=== PATIENT | male | born 1995 | race Caucasian/White ===

== ENCOUNTER 2022-07-29 18:42 | Inpatient (IN) | payer SELFPAY ==
[~2022-07-29 18:42] MED LIST: Iopamidol-370 76% 500 ML 1 ML ONE
[2022-07-29] MEDS ORDERED: Propofol 1,000 MG/100 ML VIAL IV ONE (18:49)
[2022-07-29] MEDS ORDERED: Fentanyl 100 MCG/2 ML VIAL ONE (18:49)
[2022-07-29 19:05] LABS: #Basophils 0.1 thou/uL (0.0-0.2); #Eosinphils 0.1 thou/uL (0.0-0.7); #Lymphocytes 3.4 thou/uL (1.20-3.40); #Monocytes 0.5 thou/uL (0.11-0.59); #Neutrophils 4.7 thou/uL (1.40-6.50); %Basophils 1.2 % (0.0-1.0); %Eosinophils 1.4 % (0.0-10.0); %Lymphocytes 38.3 % (21.0-51.0); %Monocytes 6.1 % (0.0-10.0); Hemoglobin 15.1 g/dL (14.0-18.0); Mean Corpuscular HGB CONC 33.5 g/dL (32.0-36.0); Mean Corpuscular Hemoglobin 29.7 pg (27.0-31.0); Mean Corpuscular Volume 88.7 fL (78.0-98.0); Mean Platelet Volume 7.1 fL (7.4-10.4); Platelet Count 258 thou/uL (130-400); RBC Distribution Width 11.5 % (11.5-14.5); Red Blood Cell (RBC) Count 5.07 mill/uL (4.70-6.10); White Blood Cell (WBC) Count 8.8 thou/uL (4.8-10.8)
[2022-07-29 19:23] LABS: Amphetamine Detected (NotDetected); Barbiturates Screen Not Detected (NotDetected); Benzodiazepine Screen Not Detected (NotDetected); Cocaine Metabolite Screen Not Detected (NotDetected); Methadone Not Detected (NotDetected); Methamphetamine Detected (NotDetected); Opiate Screen Not Detected (NotDetected); Oxycodone Screen Not Detected (NotDetected); Phencyclidine (PCP) Not Detected (NotDetected); THC/Cannabinoid Screen Detected (NotDetected); Tricyclic Screen Not Detected (NotDetected)
[2022-07-29 19:28] LABS: ALT (SGPT) 56 U/L (8-55); AST (SGOT) 87 U/L (5-34); Albumin 4.3 g/dL (3.5-5.0); Alkaline Phosphatase 52 U/L (40-110); Anion Gap 16 mmol/L (10-20); BUN (Urea Nitrogen) 10 mg/dL (8.9-20.6); Bilirubin, Total 1.6 mg/dL (0.2-1.2); Calc. Creatinine Clearance 0 mL/min (70-130); Calcium 9.3 mg/dL (7.8-10.44); Carbon Dioxide 19 mmol/L (22-29); Chloride 107 mmol/L (98-107); Estimated GFR 94; Globulin 2.4 g/dL (2.4-3.5); Glucose 98 mg/dL (70-105); Potassium 3.2 mmol/L (3.5-5.1); Protein, Total 6.7 g/dL (6.0-8.3); Sodium 139 mmol/L (136-145)
[2022-07-29] MEDS ORDERED: hydrALAZINE 20 MG/ML VIAL SLOW IVP PRN (19:29)
[2022-07-29] MEDS ORDERED: Dextrose 50% Abboject 50 ML SYRINGE SLOW IVP PRN (19:29)
[2022-07-29] MEDS ORDERED: TETANUS, DIPHTHERIA TOX,ADULT (TDVAX) 0.5 ML VIAL IM ONE (19:29)
[2022-07-29] MEDS ORDERED: Dextrose 5% in Water 1,000 ML IV PRN (19:29)
[2022-07-29] MEDS ORDERED: Sodium Chloride 0.9% 1,000 ML IV SCH (19:30)
[2022-07-29 19:35] LABS: Actual Bicarbonate (HCO3a) 23.1 mEq/L (22-28); Analyzer IN Cardio ER; Base Excess (BEa) 0.2 mEq/L (-2.0 to +3.0); CO2 Tension 32.9 mmHg (35.0-45.0); Calcium, Ionized (arterial) 1.14 mmol/L (1.12-1.30); Carboxyhemoglobin (COHb) 1.4 gm% (0.0-3.0); Hemoglobin (Hb) 15.1 g/dL (14.0-18.0); O2 Tension (PaO2), arterial 229.4 mmHg (80.0-100.0); Potassium - ABG Lab 3.42 mmol/L (3.70-5.30); pH, Arterial 7.47 (7.35-7.45)
[2022-07-29 19:36] LABS: Bacteria/HPF None Seen HPF (None Seen); Bilirubin Negative (Negative); Blood, Urine 1+ (Negative); Clarity Clear (Clear); Glucose, Urine (Dipstick) Normal (Negative); Ketone, Urine Trace mg/dL (Negative); Leukocyte Negative Leu/uL (Negative); Nitrite Negative (Negative); Protein, Urine (Dipstick) 100 mg/dL (Neg-Trace); Specific Gravity, Urine 1.031 (1.002-1.036); pH, Urine 5.5 (5.0-9.0)
[2022-07-29 19:38] LABS: Sperm/HPF 2+ HPF (None Seen); Squamous Epithelial 0-3 HPF (0-3); WBC/HPF 0-3 HPF (0-3)
[2022-07-29] MEDS ORDERED: Ventilator Sedation Protocol 1 EACH FS ONE (19:41)
[2022-07-29 19:46] LABS: ALV-art Gradient 14.675 mmHg (0-20); Puncture Site RRA
[2022-07-29 20:00] LABS: Phosphorus 2.8 mg/dL (2.3-4.7)
[2022-07-29] MEDS ORDERED: Acetaminophen 650 MG/20.3 ML UDCUP PER TUBE PRN (20:00)
[2022-07-29 20:02] LABS: Alcohol Less than 10 mg/dL (Less than 10)
[2022-07-29 20:37] LABS: SARS-CoV-2 NAA Rapid Test Not Detected (NotDetected)
[2022-07-29] MEDS ORDERED: Midazolam HCl 2 mg/2 ml Vial SLOW IVP PRN (20:44)
[2022-07-29 20:45] LABS: Acetaminophen Less than 10.0 mcg/mL (10.0-30.0); Alcohol Less than 10 mg/dL (Less than 10); Salicylate Less than 8.0 mg/dL (15.0-30.0)
[2022-07-29] MEDS ORDERED: DISCONTINUE PREVIOUS NARCOTIC PAIN MEDICATIONS AND BENZODIAZEPINES FS SCH (20:45)
[2022-07-29] MEDS ORDERED: Propofol BOLUS 1,000 MG/100 ML VIAL IV PRN (20:45)
[2022-07-29] MEDS ORDERED: Morphine 4 MG/ML VIAL SLOW IVP PRN (20:45)
[2022-07-29] MEDS ORDERED: Fentanyl CADD 100 ML IV SCH (20:45)
[2022-07-29] MEDS ORDERED: Fentanyl BOLUS 250 ML IVPB PRN (20:45)
[2022-07-29] MEDS: Sodium Chloride 0.9% 1,000 ML IV SCH (20:58)
[2022-07-29 20:59] LABS: INR-International Normal Ratio 1.1; PTT 28.7 sec (22.9-36.1); Prothrombin Time 14.8 sec (12.0-14.7)
[2022-07-29] MEDS ORDERED: Famotidine/PF 20 mg/2ml Vial SLOW IVP SCH (21:00)
[2022-07-29] MEDS ORDERED: Sodium Chloride 0.9% 500 ML IV SCH (22:00)
[2022-07-29 22:19] LABS: Phosphorus 3.1 mg/dL (2.3-4.7)
[2022-07-29] MEDS: hydrALAZINE 20 MG/ML VIAL SLOW IVP PRN (23:13)
[2022-07-30] MEDS: Propofol 1,000 MG/100 ML VIAL IV PRN ×3 (03:38→17:05)
[2022-07-30 04:38] LABS: Anion Gap 13 mmol/L (10-20); BUN (Urea Nitrogen) 9 mg/dL (8.9-20.6); Calc. Creatinine Clearance 129 mL/min (70-130); Calcium 8.8 mg/dL (7.8-10.44); Carbon Dioxide 21 mmol/L (22-29); Chloride 108 mmol/L (98-107); Estimated GFR 120; Glucose 80 mg/dL (70-105); Potassium 4.2 mmol/L (3.5-5.1); Sodium 138 mmol/L (136-145)
[2022-07-30] MEDS: hydrALAZINE 20 MG/ML VIAL SLOW IVP PRN ×3 (05:13→17:38)
[2022-07-30 06:44] LABS: #Basophils 0.1 thou/uL (0.0-0.2); #Eosinphils 0.1 thou/uL (0.0-0.7); #Lymphocytes 2.2 thou/uL (1.20-3.40); #Monocytes 1.4 thou/uL (0.11-0.59); #Neutrophils 10.3 thou/uL (1.40-6.50); %Basophils 0.4 % (0.0-1.0); %Eosinophils 0.4 % (0.0-10.0); %Lymphocytes 15.7 % (21.0-51.0); %Monocytes 10.1 % (0.0-10.0); %Neutrophils 73.3 % (42.0-75.0); Hemoglobin 14.6 g/dL (14.0-18.0); Mean Corpuscular HGB CONC 32.9 g/dL (32.0-36.0); Mean Corpuscular Hemoglobin 29.5 pg (27.0-31.0); Mean Corpuscular Volume 89.7 fL (78.0-98.0); Mean Platelet Volume 7.3 fL (7.4-10.4); Platelet Count 224 thou/uL (130-400); RBC Distribution Width 11.7 % (11.5-14.5); Red Blood Cell (RBC) Count 4.94 mill/uL (4.70-6.10); White Blood Cell (WBC) Count 14.1 thou/uL (4.8-10.8)
[2022-07-30 06:47] LABS: Actual Bicarbonate (HCO3a) 23.1 mEq/L (22-28); Base Excess (BEa) -0.8 mEq/L (-2.0 to +3.0); CO2 Tension 36.5 mmHg (35.0-45.0); Calcium, Ionized (arterial) 1.16 mmol/L (1.12-1.30); Carboxyhemoglobin (COHb) 0.8 gm% (0.0-3.0); Hemoglobin (Hb) 15.2 g/dL (14.0-18.0); Potassium - ABG Lab 3.53 mmol/L (3.70-5.30); pH, Arterial 7.42 (7.35-7.45)
[2022-07-30 06:54] LABS: INR-International Normal Ratio 1.2; PTT 26.9 sec (22.9-36.1)
[2022-07-30 07:12] LABS: ALV-art Gradient 26.275 mmHg (0-20); Puncture Site RBA
[2022-07-30] MEDS: Labetalol HCl 100 MG/20 ML VIAL SLOW IVP PRN (07:13)
[2022-07-30] MEDS: Sodium Chloride 0.9% 1,000 ML IV SCH ×2 (07:15→13:01)
[2022-07-30] MEDS: Pantoprazole 40 MG VIAL IVP SCH ×2 (09:06→21:26)
[2022-07-30] MEDS ORDERED: Fentanyl CADD 100 ML ONE (12:46)
[2022-07-31] MEDS: Propofol 1,000 MG/100 ML VIAL IV PRN (02:30)
[2022-07-31] MEDS: Sodium Chloride 0.9% 1,000 ML IV SCH ×2 (02:30→18:36)
[2022-07-31] MEDS: Pantoprazole 40 MG VIAL IVP SCH ×2 (08:49→20:19)
[2022-07-31 09:56] LABS: Anion Gap 15 mmol/L (10-20); BUN (Urea Nitrogen) 9 mg/dL (8.9-20.6); Band 6 % (5-11); Calc. Creatinine Clearance 168 mL/min (70-130); Calcium 8.8 mg/dL (7.8-10.44); Carbon Dioxide 19 mmol/L (22-29); Chloride 108 mmol/L (98-107); Estimated GFR 130; Glucose 81 mg/dL (70-105); Hemoglobin 16.2 g/dL (14.0-18.0); Lymphocytes 10 % (21-51); MDiff Complete? YES; Magnesium 2.1 mg/dL (1.6-2.6); Mean Corpuscular HGB CONC 32.7 g/dL (32.0-36.0); Mean Corpuscular Hemoglobin 30.2 pg (27.0-31.0); Mean Corpuscular Volume 92.4 fL (78.0-98.0); Mean Platelet Volume 8.2 fL (7.4-10.4); Monocytes 7 % (0-10); Neutrophil 73 % (42-75); Phosphorus 2.1 mg/dL (2.3-4.7); Platelet Count 134 thou/uL (130-400); Platelet Morphology Comment Appears Adequate; RBC Distribution Width 11.9 % (11.5-14.5); RBC Morphology Normal; Reactive Lymphocytes 4 % (0-10); Red Blood Cell (RBC) Count 5.38 mill/uL (4.70-6.10); Sodium 138 mmol/L (136-145); White Blood Cell (WBC) Count 16.1 thou/uL (4.8-10.8)
[2022-07-31] MEDS ORDERED: Sodium Phosphate 30 MMOL in Sodium Chloride 0.9% 250 ML 250 ML IVPB SCH (12:45)
[2022-07-31] MEDS: Labetalol HCl 100 MG/20 ML VIAL SLOW IVP PRN (20:11)
[2022-07-31] MEDS: hydrALAZINE 20 MG/ML VIAL SLOW IVP PRN (23:20)
[2022-08-01] MEDS: Labetalol HCl 100 MG/20 ML VIAL SLOW IVP PRN ×2 (00:30→08:30)
[2022-08-01] MEDS ORDERED: Fentanyl CADD 100 ML ONE (01:18)
[2022-08-01] MEDS ORDERED: Labetalol HCl 100 MG/20 ML VIAL SLOW IVP PRN (02:41)
[2022-08-01] MEDS: Sodium Chloride 0.9% 1,000 ML IV SCH ×2 (04:53→16:08)
[2022-08-01] MEDS: Propofol 1,000 MG/100 ML VIAL IV PRN (04:54)
[2022-08-01 06:31] LABS: #Eosinphils 0.1 thou/uL (0.0-0.7); #Lymphocytes 1.9 thou/uL (1.20-3.40); #Monocytes 1.2 thou/uL (0.11-0.59); #Neutrophils 13.2 thou/uL (1.40-6.50); %Basophils 0.2 % (0.0-1.0); %Eosinophils 0.5 % (0.0-10.0); %Lymphocytes 11.6 % (21.0-51.0); %Monocytes 7.3 % (0.0-10.0); %Neutrophils 80.4 % (42.0-75.0); Hemoglobin 14.7 g/dL (14.0-18.0); Mean Corpuscular HGB CONC 32.9 g/dL (32.0-36.0); Mean Corpuscular Hemoglobin 30.1 pg (27.0-31.0); Mean Corpuscular Volume 91.5 fL (78.0-98.0); Mean Platelet Volume 9.2 fL (7.4-10.4); Platelet Count 171 thou/uL (130-400); RBC Distribution Width 11.8 % (11.5-14.5); Red Blood Cell (RBC) Count 4.89 mill/uL (4.70-6.10); White Blood Cell (WBC) Count 16.5 thou/uL (4.8-10.8)
[2022-08-01 06:35] LABS: Actual Bicarbonate (HCO3a) 24.2 mEq/L (22-28); Base Excess (BEa) 0.2 mEq/L (-2.0 to +3.0); CO2 Tension 37.6 mmHg (35.0-45.0); Calcium, Ionized (arterial) 1.17 mmol/L (1.12-1.30); Carboxyhemoglobin (COHb) 0.7 gm% (0.0-3.0); Hemoglobin (Hb) 14.7 g/dL (14.0-18.0); Potassium - ABG Lab 3.68 mmol/L (3.70-5.30); pH, Arterial 7.43 (7.35-7.45)
[2022-08-01 06:37] LABS: O2 Tension (PaO2), arterial 59.2 mmHg (80.0-100.0); Puncture Site RRA
[2022-08-01 06:51] LABS: Anion Gap 13 mmol/L (10-20); BUN (Urea Nitrogen) 7 mg/dL (8.9-20.6); Calc. Creatinine Clearance 164 mL/min (70-130); Calcium 8.8 mg/dL (7.8-10.44); Carbon Dioxide 23 mmol/L (22-29); Chloride 108 mmol/L (98-107); Estimated GFR 129; Glucose 90 mg/dL (70-105); Magnesium 2.1 mg/dL (1.6-2.6); Phosphorus 2.6 mg/dL (2.3-4.7); Potassium 3.8 mmol/L (3.5-5.1); Sodium 140 mmol/L (136-145)
[2022-08-01] MEDS ORDERED: Potassium Phosphate 30 MMOL in Sodium Chloride 0.9% 250 ML 250 ML IVPB SCH (09:00)
[2022-08-01] MEDS: Pantoprazole 40 MG VIAL IVP SCH (09:16)
[2022-08-01] MEDS ORDERED: Haloperidol Lactate 5 MG/ML VIAL SLOW IVP SCH (13:45)
[2022-08-01] MEDS ORDERED: Midazolam HCl 2 mg/2 ml Vial ONE (14:17)
[2022-08-01] MEDS ORDERED: carBAMazepine 200 MG/10 ML UDCUP PO SCH (16:15)
[2022-08-01] MEDS: Morphine 4 MG/ML VIAL SLOW IVP PRN (18:17)
[2022-08-01] MEDS: carBAMazepine 200 MG/10 ML UDCUP PO SCH (21:45)
[2022-08-02] MEDS: Sodium Chloride 0.9% 1,000 ML IV SCH ×3 (04:11→22:07)
[2022-08-02 04:16] LABS: #Eosinphils 0.1 thou/uL (0.0-0.7); #Lymphocytes 1.3 thou/uL (1.20-3.40); #Monocytes 1.2 thou/uL (0.11-0.59); #Neutrophils 12.2 thou/uL (1.40-6.50); %Basophils 0.2 % (0.0-1.0); %Eosinophils 0.9 % (0.0-10.0); %Lymphocytes 8.8 % (21.0-51.0); %Monocytes 8.2 % (0.0-10.0); %Neutrophils 81.9 % (42.0-75.0); Hemoglobin 12.7 g/dL (14.0-18.0); Mean Corpuscular HGB CONC 33.3 g/dL (32.0-36.0); Mean Corpuscular Volume 90.1 fL (78.0-98.0); Mean Platelet Volume 7.9 fL (7.4-10.4); Platelet Count 190 thou/uL (130-400); RBC Distribution Width 11.2 % (11.5-14.5); Red Blood Cell (RBC) Count 4.22 mill/uL (4.70-6.10); White Blood Cell (WBC) Count 14.9 thou/uL (4.8-10.8)
[2022-08-02 04:35] LABS: Anion Gap 10 mmol/L (10-20); BUN (Urea Nitrogen) 9 mg/dL (8.9-20.6); Calc. Creatinine Clearance 157 mL/min (70-130); Calcium 8.8 mg/dL (7.8-10.44); Carbon Dioxide 25 mmol/L (22-29); Chloride 113 mmol/L (98-107); Estimated GFR 127; Glucose 108 mg/dL (70-105); Magnesium 2.1 mg/dL (1.6-2.6); Phosphorus 2.1 mg/dL (2.3-4.7); Potassium 3.9 mmol/L (3.5-5.1); Sodium 144 mmol/L (136-145)
[2022-08-02] MEDS ORDERED: Potassium Phosphate 30 MMOL in Sodium Chloride 0.9% 250 ML 250 ML IVPB SCH (08:15)
[2022-08-02] MEDS: Pantoprazole 40 MG VIAL IVP SCH (08:58)
[2022-08-02] MEDS: carBAMazepine 200 MG/10 ML UDCUP PO SCH ×3 (10:15→21:57)
[2022-08-02] MEDS: Acetaminophen 650 MG/20.3 ML UDCUP PER TUBE SCH ×3 (10:16→21:58)
[2022-08-02] MEDS: Labetalol HCl 100 MG/20 ML VIAL SLOW IVP PRN ×2 (14:16→17:09)
[2022-08-02] MEDS: Morphine 4 MG/ML VIAL SLOW IVP PRN ×2 (14:57→19:59)
[2022-08-02] MEDS: Senokot S 8.6-50 MG TAB PO SCH (21:58)
[2022-08-03] MEDS: Morphine 4 MG/ML VIAL SLOW IVP PRN ×5 (00:32→22:15)
[2022-08-03 04:23] LABS: #Eosinphils 0.2 thou/uL (0.0-0.7); #Lymphocytes 1.5 thou/uL (1.20-3.40); #Monocytes 1.3 thou/uL (0.11-0.59); #Neutrophils 11.3 thou/uL (1.40-6.50); %Basophils 0.3 % (0.0-1.0); %Eosinophils 1.1 % (0.0-10.0); %Lymphocytes 10.8 % (21.0-51.0); %Neutrophils 78.9 % (42.0-75.0); Hemoglobin 12.8 g/dL (14.0-18.0); Mean Corpuscular HGB CONC 33.3 g/dL (32.0-36.0); Mean Corpuscular Hemoglobin 29.8 pg (27.0-31.0); Mean Corpuscular Volume 89.6 fL (78.0-98.0); Mean Platelet Volume 8.1 fL (7.4-10.4); Platelet Count 221 thou/uL (130-400); RBC Distribution Width 11.2 % (11.5-14.5); Red Blood Cell (RBC) Count 4.28 mill/uL (4.70-6.10); White Blood Cell (WBC) Count 14.3 thou/uL (4.8-10.8)
[2022-08-03 05:22] LABS: Anion Gap 13 mmol/L (10-20); BUN (Urea Nitrogen) 10 mg/dL (8.9-20.6); Calc. Creatinine Clearance 160 mL/min (70-130); Carbon Dioxide 24 mmol/L (22-29); Chloride 112 mmol/L (98-107); Estimated GFR 128; Glucose 105 mg/dL (70-105); Phosphorus 2.6 mg/dL (2.3-4.7); Potassium 3.7 mmol/L (3.5-5.1); Sodium 145 mmol/L (136-145)
[2022-08-03] MEDS: Acetaminophen 650 MG/20.3 ML UDCUP PER TUBE SCH ×4 (05:41→21:28)
[2022-08-03] MEDS: Labetalol HCl 100 MG/20 ML VIAL SLOW IVP PRN ×2 (06:42→19:09)
[2022-08-03] MEDS: Sodium Chloride 0.9% 1,000 ML IV SCH (08:33)
[2022-08-03] MEDS: Polyethylene Glycol 3350 17 GM Packet PO SCH (08:40)
[2022-08-03] MEDS: Senokot S 8.6-50 MG TAB PO SCH ×2 (08:40→21:30)
[2022-08-03] MEDS: Pantoprazole 40 MG VIAL IVP SCH (08:40)
[2022-08-03] MEDS: carBAMazepine 200 MG/10 ML UDCUP PO SCH ×2 (08:40→21:57)
[2022-08-04] MEDS: Morphine 4 MG/ML VIAL SLOW IVP PRN ×3 (01:55→17:35)
[2022-08-04] MEDS: Acetaminophen 650 MG/20.3 ML UDCUP PER TUBE SCH ×3 (03:16→15:02)
[2022-08-04 05:24] LABS: #Eosinphils 0.3 thou/uL (0.0-0.7); #Lymphocytes 1.8 thou/uL (1.20-3.40); #Monocytes 1.2 thou/uL (0.11-0.59); #Neutrophils 10.3 thou/uL (1.40-6.50); %Basophils 0.2 % (0.0-1.0); %Neutrophils 75.9 % (42.0-75.0); Mean Corpuscular HGB CONC 32.7 g/dL (32.0-36.0); Mean Corpuscular Hemoglobin 29.3 pg (27.0-31.0); Mean Corpuscular Volume 89.5 fL (78.0-98.0); Mean Platelet Volume 7.9 fL (7.4-10.4); Platelet Count 265 thou/uL (130-400); RBC Distribution Width 11.4 % (11.5-14.5); Red Blood Cell (RBC) Count 4.77 mill/uL (4.70-6.10); White Blood Cell (WBC) Count 13.6 thou/uL (4.8-10.8)
[2022-08-04 05:41] LABS: Anion Gap 12 mmol/L (10-20); BUN (Urea Nitrogen) 13 mg/dL (8.9-20.6); Calc. Creatinine Clearance 160 mL/min (70-130); Calcium 9.3 mg/dL (7.8-10.44); Carbon Dioxide 26 mmol/L (22-29); Chloride 109 mmol/L (98-107); Estimated GFR 128; Glucose 113 mg/dL (70-105); Potassium 3.6 mmol/L (3.5-5.1); Sodium 143 mmol/L (136-145)
[2022-08-04] MEDS: Labetalol HCl 100 MG/20 ML VIAL SLOW IVP PRN ×3 (06:31→19:47)
[2022-08-04] MEDS: Sodium Chloride 0.9% 1,000 ML IV SCH (06:31)
[2022-08-04] MEDS: Pantoprazole 40 MG VIAL IVP SCH (08:14)
[2022-08-04] MEDS: Polyethylene Glycol 3350 17 GM Packet PO SCH (08:14)
[2022-08-04] MEDS: Senokot S 8.6-50 MG TAB PO SCH ×2 (08:16→20:07)
[2022-08-04] MEDS: carBAMazepine 200 MG/10 ML UDCUP PO SCH ×2 (08:17→20:08)
[2022-08-04] MEDS ORDERED: Acetaminophen 650 MG/20.3 ML UDCUP PER TUBE SCH (08:30)
[2022-08-04] MEDS: Acetaminophen/Codeine 30-300mg Tablet PO SCH ×4 (09:32→23:13)
[2022-08-04] MEDS ORDERED: Aripiprazole 10 MG TAB PO SCH (10:15)
[2022-08-04] MEDS: hydrALAZINE 20 MG/ML VIAL SLOW IVP PRN (11:23)
[2022-08-04] MEDS ORDERED: Morphine 4 MG/ML VIAL SLOW IVP PRN (13:14)
[2022-08-04] MEDS ORDERED: Midazolam HCl 2 mg/2 ml Vial ONE (13:37)
[2022-08-04] MEDS ORDERED: Midazolam HCl 2 mg/2 ml Vial SLOW IVP SCH (13:39)
[2022-08-04] MEDS ORDERED: Oxazepam 10 MG CAP PO SCH ×2 (14:00→18:00)
[2022-08-04] MEDS ORDERED: cloNIDine 0.1 MG TAB PO SCH ×2 (14:00→18:00)
[2022-08-04] MEDS ORDERED: Morphine 2 MG/ML VIAL SLOW IVP PRN (17:19)
[2022-08-04] MEDS ORDERED: Morphine 4 MG/ML VIAL ONE (17:34)
[2022-08-04] MEDS: cloNIDine 0.1 MG TAB PO SCH ×2 (19:46→23:15)
[2022-08-04] MEDS: Melatonin 3 MG TAB PO SCH (20:06)
[2022-08-05] MEDS: Sodium Chloride 0.9% 1,000 ML IV SCH ×2 (00:29→17:55)
[2022-08-05] MEDS: Morphine 4 MG/ML VIAL SLOW IVP PRN ×2 (02:55→13:18)
[2022-08-05 04:25] LABS: #Eosinphils 0.3 thou/uL (0.0-0.7); #Lymphocytes 2.1 thou/uL (1.20-3.40); #Monocytes 1.1 thou/uL (0.11-0.59); #Neutrophils 7.9 thou/uL (1.40-6.50); %Basophils 0.3 % (0.0-1.0); %Eosinophils 2.2 % (0.0-10.0); %Lymphocytes 18.8 % (21.0-51.0); %Monocytes 9.7 % (0.0-10.0); %Neutrophils 68.9 % (42.0-75.0); Hemoglobin 13.8 g/dL (14.0-18.0); Mean Corpuscular HGB CONC 32.4 g/dL (32.0-36.0); Mean Corpuscular Hemoglobin 29.2 pg (27.0-31.0); Mean Corpuscular Volume 90.2 fL (78.0-98.0); Mean Platelet Volume 7.9 fL (7.4-10.4); Platelet Count 311 thou/uL (130-400); RBC Distribution Width 11.6 % (11.5-14.5); Red Blood Cell (RBC) Count 4.72 mill/uL (4.70-6.10); White Blood Cell (WBC) Count 11.4 thou/uL (4.8-10.8)
[2022-08-05 04:48] LABS: Anion Gap 15 mmol/L (10-20); BUN (Urea Nitrogen) 14 mg/dL (8.9-20.6); Calc. Creatinine Clearance 175 mL/min (70-130); Calcium 9.4 mg/dL (7.8-10.44); Carbon Dioxide 23 mmol/L (22-29); Chloride 108 mmol/L (98-107); Estimated GFR 132; Glucose 103 mg/dL (70-105); Magnesium 1.9 mg/dL (1.6-2.6); Phosphorus 3.8 mg/dL (2.3-4.7); Potassium 3.6 mmol/L (3.5-5.1); Sodium 142 mmol/L (136-145)
[2022-08-05] MEDS: Acetaminophen/Codeine 30-300mg Tablet PO SCH ×3 (05:50→17:53)
[2022-08-05] MEDS: cloNIDine 0.1 MG TAB PO SCH ×3 (05:51→17:53)
[2022-08-05] MEDS ORDERED: OXcarbazepine 300 MG TAB PO SCH ×2 (09:00)
[2022-08-05] MEDS ORDERED: Aripiprazole 10 MG TAB PO SCH (09:00)
[2022-08-05] MEDS ORDERED: Bisacodyl 10 MG SUPP PR PRN (09:50)
[2022-08-05] MEDS: Senokot S 8.6-50 MG TAB PO SCH ×2 (10:58→22:49)
[2022-08-05] MEDS: Polyethylene Glycol 3350 17 GM Packet PO SCH (10:59)
[2022-08-05] MEDS: Pantoprazole 40 MG VIAL IVP SCH (11:04)
[2022-08-05] MEDS: Melatonin 3 MG TAB PO SCH (22:49)
[2022-08-06] MEDS: Acetaminophen/Codeine 30-300mg Tablet PO SCH ×4 (00:59→17:19)
[2022-08-06] MEDS: cloNIDine 0.1 MG TAB PO SCH ×4 (01:00→17:18)
[2022-08-06] MEDS: Pantoprazole 40 MG VIAL IVP SCH (10:19)
[2022-08-06] MEDS: Polyethylene Glycol 3350 17 GM Packet PO SCH (10:19)
[2022-08-06] MEDS: Senokot S 8.6-50 MG TAB PO SCH ×2 (10:21→20:36)
[2022-08-06] MEDS: Morphine 4 MG/ML VIAL SLOW IVP PRN (14:13)
[2022-08-06] MEDS: Sodium Chloride 0.9% 1,000 ML IV SCH (17:19)
[2022-08-06] MEDS: Melatonin 3 MG TAB PO SCH (20:36)
[2022-08-06] MEDS: Aripiprazole 10 MG TAB PO SCH (20:36)
[2022-08-06] MEDS: Metoprolol Tartrate 25 MG TAB PO SCH (20:36)
[2022-08-06] MEDS: OXcarbazepine 300 MG TAB PO SCH (20:37)
[2022-08-07] MEDS: Acetaminophen/Codeine 30-300mg Tablet PO SCH ×6 (00:12→23:01)
[2022-08-07] MEDS: cloNIDine 0.1 MG TAB PO SCH ×6 (00:12→23:23)
[2022-08-07] MEDS: Metoprolol Tartrate 25 MG TAB PO SCH ×2 (08:55→20:27)
[2022-08-07] MEDS: Pantoprazole 40 MG VIAL IVP SCH (08:55)
[2022-08-07] MEDS: Polyethylene Glycol 3350 17 GM Packet PO SCH (08:55)
[2022-08-07] MEDS: Senokot S 8.6-50 MG TAB PO SCH (08:56)
[2022-08-07] MEDS: Sodium Chloride 0.9% 1,000 ML IV SCH (12:23)
[2022-08-07] MEDS: Aripiprazole 10 MG TAB PO SCH (20:26)
[2022-08-07] MEDS: Melatonin 3 MG TAB PO SCH (20:27)
[2022-08-07] MEDS: Docusate 100 MG CAP PO SCH (20:28)
[2022-08-07] MEDS: OXcarbazepine 300 MG TAB PO SCH (21:50)
[2022-08-08] MEDS ORDERED: Morphine 2 MG/ML VIAL SLOW IVP SCH ×2 (03:15→22:00)
[2022-08-08] MEDS: Acetaminophen/Codeine 30-300mg Tablet PO SCH ×2 (05:11→12:29)
[2022-08-08] MEDS: cloNIDine 0.1 MG TAB PO SCH ×4 (05:11→23:17)
[2022-08-08] MEDS: Bisacodyl 10 MG SUPP PR SCH (10:23)
[2022-08-08] MEDS: Polyethylene Glycol 3350 17 GM Packet PO SCH (10:23)
[2022-08-08] MEDS: Metoprolol Tartrate 25 MG TAB PO SCH ×2 (10:23→20:21)
[2022-08-08] MEDS: Docusate 100 MG CAP PO SCH ×2 (10:23→20:21)
[2022-08-08] MEDS: Acetaminophen W/ Codeine 5 ML UDCUP PO PRN ×2 (10:58→20:21)
[2022-08-08] MEDS: Acetaminophen 325 MG/10.15 ML UDCUP PO SCH ×2 (18:22→23:17)
[2022-08-08] MEDS: Aripiprazole 10 MG TAB PO SCH (20:20)
[2022-08-08] MEDS: Melatonin 3 MG TAB PO SCH (20:21)
[2022-08-08] MEDS: OXcarbazepine 300 MG TAB PO SCH (20:21)
[2022-08-08 22:30] LABS: #Basophils 0.1 thou/uL (0.0-0.2); #Eosinphils 0.1 thou/uL (0.0-0.7); #Lymphocytes 2.2 thou/uL (1.20-3.40); #Monocytes 1.1 thou/uL (0.11-0.59); #Neutrophils 8.6 thou/uL (1.40-6.50); %Basophils 0.8 % (0.0-1.0); %Eosinophils 0.9 % (0.0-10.0); %Lymphocytes 18.4 % (21.0-51.0); %Monocytes 9.2 % (0.0-10.0); %Neutrophils 70.8 % (42.0-75.0); Hemoglobin 15.8 g/dL (14.0-18.0); Mean Corpuscular HGB CONC 33.1 g/dL (32.0-36.0); Mean Corpuscular Hemoglobin 29.1 pg (27.0-31.0); Mean Corpuscular Volume 88.1 fL (78.0-98.0); Mean Platelet Volume 7.5 fL (7.4-10.4); Platelet Count 549 thou/uL (130-400); RBC Distribution Width 11.8 % (11.5-14.5); Red Blood Cell (RBC) Count 5.42 mill/uL (4.70-6.10); White Blood Cell (WBC) Count 12.2 thou/uL (4.8-10.8)
[2022-08-08 22:45] LABS: Anion Gap 14 mmol/L (10-20); BUN (Urea Nitrogen) 21 mg/dL (8.9-20.6); Calc. Creatinine Clearance 142 mL/min (70-130); Calcium 10.2 mg/dL (7.8-10.44); Carbon Dioxide 25 mmol/L (22-29); Chloride 106 mmol/L (98-107); Estimated GFR 127; Glucose 127 mg/dL (70-105); Magnesium 2.2 mg/dL (1.6-2.6); Potassium 4.1 mmol/L (3.5-5.1); Sodium 141 mmol/L (136-145)
[2022-08-08] MEDS: Acetaminophen W/ Codeine 5 ML UDCUP PO SCH (23:16)
[2022-08-09] MEDS: Acetaminophen W/ Codeine 5 ML UDCUP PO SCH (05:23)
[2022-08-09] MEDS: Acetaminophen 325 MG/10.15 ML UDCUP PO SCH ×3 (05:23→18:24)
[2022-08-09] MEDS: cloNIDine 0.1 MG TAB PO SCH (05:24)
[2022-08-09 05:59] LABS: #Basophils 0.1 thou/uL (0.0-0.2); #Eosinphils 0.1 thou/uL (0.0-0.7); #Lymphocytes 3.7 thou/uL (1.20-3.40); #Monocytes 1.3 thou/uL (0.11-0.59); #Neutrophils 9.9 thou/uL (1.40-6.50); %Basophils 0.5 % (0.0-1.0); %Eosinophils 0.9 % (0.0-10.0); %Lymphocytes 24.8 % (21.0-51.0); %Monocytes 8.3 % (0.0-10.0); %Neutrophils 65.5 % (42.0-75.0); Hemoglobin 15.4 g/dL (14.0-18.0); Mean Corpuscular HGB CONC 32.3 g/dL (32.0-36.0); Mean Corpuscular Hemoglobin 28.4 pg (27.0-31.0); Mean Platelet Volume 7.6 fL (7.4-10.4); Platelet Count 647 thou/uL (130-400); RBC Distribution Width 11.8 % (11.5-14.5); Red Blood Cell (RBC) Count 5.41 mill/uL (4.70-6.10)
[2022-08-09 06:24] LABS: Anion Gap 13 mmol/L (10-20); BUN (Urea Nitrogen) 25 mg/dL (8.9-20.6); Calc. Creatinine Clearance 126 mL/min (70-130); Calcium 10.2 mg/dL (7.8-10.44); Carbon Dioxide 26 mmol/L (22-29); Chloride 106 mmol/L (98-107); Estimated GFR 124; Glucose 117 mg/dL (70-105); Magnesium 2.4 mg/dL (1.6-2.6); Phosphorus 4.2 mg/dL (2.3-4.7); Potassium 4.3 mmol/L (3.5-5.1); Sodium 141 mmol/L (136-145)
[2022-08-09] MEDS: Metoprolol Tartrate 25 MG TAB PO SCH ×2 (08:14→20:38)
[2022-08-09] MEDS: Docusate 100 MG CAP PO SCH ×2 (08:15→20:38)
[2022-08-09] MEDS: Bisacodyl 10 MG SUPP PR SCH (08:15)
[2022-08-09] MEDS: Polyethylene Glycol 3350 17 GM Packet PO SCH (08:15)
[2022-08-09] MEDS: Melatonin 3 MG TAB PO SCH (20:38)
[2022-08-09] MEDS: Aripiprazole 10 MG TAB PO SCH (20:38)
[2022-08-09] MEDS: Acetaminophen W/ Codeine 5 ML UDCUP PO PRN (20:42)
[2022-08-09] MEDS: OXcarbazepine 300 MG TAB PO SCH (20:42)
[2022-08-10] MEDS: Acetaminophen 325 MG/10.15 ML UDCUP PO SCH ×5 (01:18→23:42)
[2022-08-10 06:09] LABS: #Basophils 0.1 thou/uL (0.0-0.2); #Eosinphils 0.1 thou/uL (0.0-0.7); #Lymphocytes 2.2 thou/uL (1.20-3.40); #Monocytes 0.9 thou/uL (0.11-0.59); #Neutrophils 9.7 thou/uL (1.40-6.50); %Basophils 0.6 % (0.0-1.0); %Eosinophils 0.4 % (0.0-10.0); %Lymphocytes 16.9 % (21.0-51.0); %Monocytes 7.1 % (0.0-10.0); Hemoglobin 17.2 g/dL (14.0-18.0); Mean Corpuscular HGB CONC 32.9 g/dL (32.0-36.0); Mean Corpuscular Hemoglobin 29.2 pg (27.0-31.0); Mean Platelet Volume 7.6 fL (7.4-10.4); Platelet Count 607 thou/uL (130-400); RBC Distribution Width 12.1 % (11.5-14.5); Red Blood Cell (RBC) Count 5.88 mill/uL (4.70-6.10)
[2022-08-10] MEDS: Metoprolol Tartrate 25 MG TAB PO SCH ×2 (08:32→21:37)
[2022-08-10] MEDS: Bisacodyl 10 MG SUPP PR SCH (08:32)
[2022-08-10] MEDS: Docusate 100 MG CAP PO SCH ×2 (08:32→21:37)
[2022-08-10] MEDS: Polyethylene Glycol 3350 17 GM Packet PO SCH (08:33)
[2022-08-10] MEDS: Aripiprazole 10 MG TAB PO SCH (21:37)
[2022-08-10] MEDS: Melatonin 3 MG TAB PO SCH (21:37)
[2022-08-10] MEDS: OXcarbazepine 300 MG TAB PO SCH (21:37)
[2022-08-11] MEDS: Acetaminophen W/ Codeine 5 ML UDCUP PO PRN (04:15)
[2022-08-11] MEDS: Acetaminophen 325 MG/10.15 ML UDCUP PO SCH ×3 (06:18→17:18)
[2022-08-11] MEDS: Polyethylene Glycol 3350 17 GM Packet PO SCH (08:40)
[2022-08-11] MEDS: Docusate 100 MG CAP PO SCH ×2 (08:40→21:24)
[2022-08-11] MEDS: Bisacodyl 10 MG SUPP PR SCH (08:40)
[2022-08-11] MEDS: Metoprolol Tartrate 25 MG TAB PO SCH ×2 (08:42→21:24)
[2022-08-11] MEDS: Melatonin 3 MG TAB PO SCH (21:23)
[2022-08-11] MEDS: OXcarbazepine 300 MG TAB PO SCH (21:23)
[2022-08-11] MEDS: Aripiprazole 10 MG TAB PO SCH (21:24)
[2022-08-12] MEDS: Acetaminophen 325 MG/10.15 ML UDCUP PO SCH ×5 (00:58→23:40)
[2022-08-12] MEDS: Acetaminophen W/ Codeine 5 ML UDCUP PO PRN (01:16)
[2022-08-12] MEDS: Metoprolol Tartrate 25 MG TAB PO SCH ×2 (09:42→22:19)
[2022-08-12] MEDS: Docusate 100 MG CAP PO SCH ×2 (09:45→22:26)
[2022-08-12] MEDS: Bisacodyl 10 MG SUPP PR SCH (09:45)
[2022-08-12] MEDS: Polyethylene Glycol 3350 17 GM Packet PO SCH (09:45)
[2022-08-12] MEDS: Enoxaparin Sodium 40 MG/0.4 ML SYRINGE SC SCH (22:19)
[2022-08-12] MEDS: Melatonin 3 MG TAB PO SCH (22:19)
[2022-08-12] MEDS: OXcarbazepine 300 MG TAB PO SCH (22:20)
[2022-08-13] MEDS: Acetaminophen 325 MG/10.15 ML UDCUP PO SCH ×3 (05:47→18:17)
[2022-08-13] MEDS: Aripiprazole 10 MG TAB PO SCH (09:08)
[2022-08-13] MEDS: Metoprolol Tartrate 25 MG TAB PO SCH ×2 (09:08→20:55)
[2022-08-13] MEDS: Polyethylene Glycol 3350 17 GM Packet PO SCH (09:08)
[2022-08-13] MEDS: Docusate 100 MG CAP PO SCH ×2 (09:09→20:55)
[2022-08-13] MEDS: Bisacodyl 10 MG SUPP PR SCH (09:09)
[2022-08-13] MEDS: OXcarbazepine 300 MG TAB PO SCH (20:55)
[2022-08-13] MEDS: Enoxaparin Sodium 40 MG/0.4 ML SYRINGE SC SCH (20:55)
[2022-08-13] MEDS: Melatonin 3 MG TAB PO SCH (20:55)
[2022-08-14] MEDS: Acetaminophen W/ Codeine 5 ML UDCUP PO PRN (01:03)
[2022-08-14] MEDS: Acetaminophen 325 MG/10.15 ML UDCUP PO SCH ×4 (01:33→18:44)
[2022-08-14] MEDS: Metoprolol Tartrate 25 MG TAB PO SCH ×2 (09:45→22:10)
[2022-08-14] MEDS: Docusate 100 MG CAP PO SCH ×2 (09:45→22:10)
[2022-08-14] MEDS: Aripiprazole 10 MG TAB PO SCH (09:45)
[2022-08-14] MEDS: Polyethylene Glycol 3350 17 GM Packet PO SCH (09:45)
[2022-08-14] MEDS: Bisacodyl 10 MG SUPP PR SCH (12:59)
[2022-08-14] MEDS: Enoxaparin Sodium 40 MG/0.4 ML SYRINGE SC SCH (22:09)
[2022-08-14] MEDS: Melatonin 3 MG TAB PO SCH (22:10)
[2022-08-14] MEDS: traZODone HCl 50 MG TAB PO SCH (22:10)
[2022-08-15] MEDS: OXcarbazepine 300 MG TAB PO SCH ×2 (01:17→21:33)
[2022-08-15] MEDS: Acetaminophen 325 MG/10.15 ML UDCUP PO SCH ×5 (01:17→23:35)
[2022-08-15] MEDS: Acetaminophen W/ Codeine 5 ML UDCUP PO PRN (05:30)
[2022-08-15 06:10] LABS: #Basophils 0.1 thou/uL (0.0-0.2); #Eosinphils 0.1 thou/uL (0.0-0.7); #Lymphocytes 3.2 thou/uL (1.20-3.40); #Monocytes 0.5 thou/uL (0.11-0.59); #Neutrophils 6.5 thou/uL (1.40-6.50); %Basophils 0.9 % (0.0-1.0); %Eosinophils 1.1 % (0.0-10.0); %Lymphocytes 30.4 % (21.0-51.0); %Monocytes 4.9 % (0.0-10.0); %Neutrophils 62.7 % (42.0-75.0); Hemoglobin 13.3 g/dL (14.0-18.0); Mean Corpuscular Volume 90.5 fL (78.0-98.0); Mean Platelet Volume 8.3 fL (7.4-10.4); Platelet Count 513 thou/uL (130-400); RBC Distribution Width 11.8 % (11.5-14.5); White Blood Cell (WBC) Count 10.4 thou/uL (4.8-10.8)
[2022-08-15 06:23] LABS: ALT (SGPT) 38 U/L (8-55); AST (SGOT) 39 U/L (5-34); Albumin 3.8 g/dL (3.5-5.0); Alkaline Phosphatase 148 U/L (40-110); Anion Gap 12 mmol/L (10-20); BUN (Urea Nitrogen) 29 mg/dL (8.9-20.6); Bilirubin, Total 0.9 mg/dL (0.2-1.2); Calc. Creatinine Clearance 121 mL/min (70-130); Calcium 9.7 mg/dL (7.8-10.44); Carbon Dioxide 28 mmol/L (22-29); Chloride 107 mmol/L (98-107); Estimated GFR 122; Globulin 3.5 g/dL (2.4-3.5); Glucose 120 mg/dL (70-105); Magnesium 2.1 mg/dL (1.6-2.6); Phosphorus 3.4 mg/dL (2.3-4.7); Potassium 3.2 mmol/L (3.5-5.1); Protein, Total 7.3 g/dL (6.0-8.3); Sodium 144 mmol/L (136-145)
[2022-08-15] MEDS ORDERED: Potassium Chloride 20 MEQ TAB PO SCH (08:00)
[2022-08-15] MEDS ORDERED: Haloperidol Lactate 5 MG/ML VIAL ONE (10:06)
[2022-08-15] MEDS ORDERED: Haloperidol Lactate 5 MG/ML VIAL IM SCH (10:15)
[2022-08-15] MEDS: Aripiprazole 10 MG TAB PO SCH (10:27)
[2022-08-15] MEDS: Polyethylene Glycol 3350 17 GM Packet PO SCH (10:28)
[2022-08-15] MEDS: Metoprolol Tartrate 25 MG TAB PO SCH ×2 (10:28→21:30)
[2022-08-15] MEDS: Docusate 100 MG CAP PO SCH ×2 (10:28→21:30)
[2022-08-15] MEDS: Bisacodyl 10 MG SUPP PR SCH (10:44)
[2022-08-15] MEDS: Melatonin 3 MG TAB PO SCH (21:30)
[2022-08-15] MEDS: Enoxaparin Sodium 40 MG/0.4 ML SYRINGE SC SCH (21:30)
[2022-08-15] MEDS: traZODone HCl 50 MG TAB PO SCH (21:30)
[2022-08-16] MEDS: Acetaminophen 325 MG/10.15 ML UDCUP PO SCH ×4 (05:04→17:40)
[2022-08-16] MEDS ORDERED: Potassium Chloride 20 MEQ TAB PO SCH (08:00)
[2022-08-16] MEDS ORDERED: Haloperidol Lactate 5 MG/ML VIAL IM ONE (08:17)
[2022-08-16] MEDS: Docusate 100 MG CAP PO SCH ×2 (10:45→21:09)
[2022-08-16] MEDS: Metoprolol Tartrate 25 MG TAB PO SCH ×2 (10:45→21:10)
[2022-08-16] MEDS: Aripiprazole 10 MG TAB PO SCH (10:45)
[2022-08-16] MEDS: Polyethylene Glycol 3350 17 GM Packet PO SCH (10:45)
[2022-08-16] MEDS: Bisacodyl 10 MG SUPP PR SCH (10:46)
[2022-08-16] MEDS ORDERED: Haloperidol Lactate 5 MG/ML VIAL IM SCH (18:15)
[2022-08-16] MEDS: traZODone HCl 50 MG TAB PO SCH (21:10)
[2022-08-16] MEDS: OXcarbazepine 300 MG TAB PO SCH (21:10)
[2022-08-16] MEDS: Melatonin 3 MG TAB PO SCH (21:10)
[2022-08-16] MEDS: Enoxaparin Sodium 40 MG/0.4 ML SYRINGE SC SCH (21:10)
[2022-08-17] MEDS: Acetaminophen 325 MG/10.15 ML UDCUP PO SCH ×4 (01:59→18:45)
[2022-08-17] MEDS ORDERED: clonazePAM 1 MG TAB PO SCH (10:15)
[2022-08-17] MEDS ORDERED: risperiDONE 1 MG TAB PO SCH (10:30)
[2022-08-17] MEDS: Docusate 100 MG CAP PO SCH ×2 (11:17→21:28)
[2022-08-17] MEDS: Bisacodyl 10 MG SUPP PR SCH (11:17)
[2022-08-17] MEDS: Aripiprazole 10 MG TAB PO SCH (11:18)
[2022-08-17] MEDS: Metoprolol Tartrate 25 MG TAB PO SCH ×2 (11:18→21:17)
[2022-08-17] MEDS: Polyethylene Glycol 3350 17 GM Packet PO SCH (11:18)
[2022-08-17] MEDS: risperiDONE 1 MG TAB PO SCH (21:16)
[2022-08-17] MEDS: Melatonin 3 MG TAB PO SCH (21:16)
[2022-08-17] MEDS: OXcarbazepine 300 MG TAB PO SCH (21:20)
[2022-08-17] MEDS: traZODone HCl 50 MG TAB PO SCH (21:21)
[2022-08-17] MEDS: Enoxaparin Sodium 40 MG/0.4 ML SYRINGE SC SCH (21:36)
[2022-08-18] MEDS: Acetaminophen 325 MG/10.15 ML UDCUP PO SCH ×5 (00:23→23:39)
[2022-08-18] MEDS ORDERED: clonazePAM 1 MG TAB PO SCH ×2 (13:33→13:35)
[2022-08-18] MEDS ORDERED: Haloperidol Lactate 5 MG/ML VIAL IM SCH (13:34)
[2022-08-18] MEDS: Bisacodyl 10 MG SUPP PR SCH (14:23)
[2022-08-18] MEDS: Aripiprazole 10 MG TAB PO SCH (14:23)
[2022-08-18] MEDS: risperiDONE 1 MG TAB PO SCH ×2 (14:24→21:33)
[2022-08-18] MEDS: Polyethylene Glycol 3350 17 GM Packet PO SCH (14:24)
[2022-08-18] MEDS: Docusate 100 MG CAP PO SCH ×2 (14:24→21:33)
[2022-08-18] MEDS: Metoprolol Tartrate 25 MG TAB PO SCH ×2 (14:24→21:33)
[2022-08-18 18:42] VITALS: BMI 21.6
[2022-08-18] MEDS: clonazePAM 1 MG TAB PO SCH (21:33)
[2022-08-18] MEDS: traZODone HCl 50 MG TAB PO SCH (21:33)
[2022-08-18] MEDS: Melatonin 3 MG TAB PO SCH (21:33)
[2022-08-18] MEDS: Enoxaparin Sodium 40 MG/0.4 ML SYRINGE SC SCH (21:34)
[2022-08-18] MEDS: OXcarbazepine 300 MG TAB PO SCH (21:34)
[2022-08-19] MEDS: Acetaminophen 325 MG/10.15 ML UDCUP PO SCH ×4 (05:55→23:00)
[2022-08-19] MEDS: Metoprolol Tartrate 25 MG TAB PO SCH ×2 (08:41→20:46)
[2022-08-19] MEDS: Aripiprazole 10 MG TAB PO SCH (08:41)
[2022-08-19] MEDS: Bisacodyl 10 MG SUPP PR SCH (08:42)
[2022-08-19] MEDS: Polyethylene Glycol 3350 17 GM Packet PO SCH (08:42)
[2022-08-19] MEDS: Docusate 100 MG CAP PO SCH ×2 (08:42→20:45)
[2022-08-19] MEDS: risperiDONE 1 MG TAB PO SCH ×2 (08:42→20:45)
[2022-08-19] MEDS: clonazePAM 1 MG TAB PO SCH (08:42)
[2022-08-19] MEDS: Acetaminophen W/ Codeine 5 ML UDCUP PO PRN (17:25)
[2022-08-19] MEDS: traZODone HCl 50 MG TAB PO SCH (20:45)
[2022-08-19] MEDS: Melatonin 3 MG TAB PO SCH (20:45)
[2022-08-19] MEDS: Enoxaparin Sodium 40 MG/0.4 ML SYRINGE SC SCH (20:46)
[2022-08-19] MEDS: OXcarbazepine 300 MG TAB PO SCH (20:46)
[2022-08-20] MEDS: Acetaminophen 325 MG/10.15 ML UDCUP PO SCH ×2 (05:29→18:46)
[2022-08-20 05:56] LABS: #Eosinphils 0.1 thou/uL (0.0-0.7); #Lymphocytes 2.9 thou/uL (1.20-3.40); #Monocytes 0.7 thou/uL (0.11-0.59); #Neutrophils 4.5 thou/uL (1.40-6.50); %Basophils 0.6 % (0.0-1.0); %Eosinophils 0.9 % (0.0-10.0); %Lymphocytes 35.3 % (21.0-51.0); %Monocytes 8.8 % (0.0-10.0); %Neutrophils 54.5 % (42.0-75.0); Hemoglobin 13.7 g/dL (14.0-18.0); Mean Corpuscular HGB CONC 33.4 g/dL (32.0-36.0); Mean Corpuscular Hemoglobin 29.1 pg (27.0-31.0); Mean Corpuscular Volume 87.1 fL (78.0-98.0); Mean Platelet Volume 7.8 fL (7.4-10.4); Platelet Count 505 thou/uL (130-400); RBC Distribution Width 11.8 % (11.5-14.5); Red Blood Cell (RBC) Count 4.71 mill/uL (4.70-6.10); White Blood Cell (WBC) Count 8.3 thou/uL (4.8-10.8)
[2022-08-20 06:10] LABS: Anion Gap 11 mmol/L (10-20); BUN (Urea Nitrogen) 13 mg/dL (8.9-20.6); Calc. Creatinine Clearance 118 mL/min (70-130); Calcium 9.6 mg/dL (7.8-10.44); Carbon Dioxide 29 mmol/L (22-29); Chloride 101 mmol/L (98-107); Estimated GFR 121; Glucose 114 mg/dL (70-105); Phosphorus 3.9 mg/dL (2.3-4.7); Potassium 3.7 mmol/L (3.5-5.1); Sodium 137 mmol/L (136-145)
[2022-08-20] MEDS: risperiDONE 1 MG TAB PO SCH ×2 (10:16→20:13)
[2022-08-20] MEDS: clonazePAM 1 MG TAB PO SCH (10:17)
[2022-08-20] MEDS: Aripiprazole 10 MG TAB PO SCH (10:20)
[2022-08-20] MEDS: Polyethylene Glycol 3350 17 GM Packet PO SCH (10:24)
[2022-08-20] MEDS: Bisacodyl 10 MG SUPP PR SCH (10:46)
[2022-08-20] MEDS: Docusate 100 MG CAP PO SCH ×2 (10:46→20:12)
[2022-08-20] MEDS: Metoprolol Tartrate 25 MG TAB PO SCH ×2 (10:46→20:12)
[2022-08-20] MEDS: Melatonin 3 MG TAB PO SCH (20:12)
[2022-08-20] MEDS: traZODone HCl 50 MG TAB PO SCH (20:13)
[2022-08-20] MEDS: OXcarbazepine 300 MG TAB PO SCH (20:13)
[2022-08-20] MEDS: Enoxaparin Sodium 40 MG/0.4 ML SYRINGE SC SCH (20:13)
[2022-08-21] MEDS: Acetaminophen 325 MG/10.15 ML UDCUP PO SCH ×2 (00:03→03:41)
[2022-08-21 08:38] VITALS: BP 120/75; TEMP 98.2
[2022-08-21] MEDS: Aripiprazole 10 MG TAB PO SCH (09:58)
[2022-08-21] MEDS: Metoprolol Tartrate 25 MG TAB PO SCH (09:58)
[2022-08-21] MEDS: risperiDONE 1 MG TAB PO SCH (09:58)
[2022-08-21] MEDS: clonazePAM 1 MG TAB PO SCH (09:59)
== END 2022-08-21 10:15 | DRG 963 ==
LOC: ERS 18:42 → CCU 19:29 → SJJU 08-05 21:09 → SURG A 08-15 18:52
PROVIDERS: ADMIT Surgery; ATTEND Surgery
PROC: 5A1945Z Respiratory Ventilation, 24-96 Consecutive Hours (ICD-10-PCS; principal; 2022-07-29)
PROC: 0BH17EZ Insertion of Endotracheal Airway into Trachea, Via Natural or Artificial Opening (ICD-10-PCS; 2022-07-29)
PROC: 0D9670Z Drainage of Stomach with Drainage Device, Via Natural or Artificial Opening (ICD-10-PCS; 2022-07-29)
DX: S06.5X3A Traumatic subdural hemorrhage with loss of consciousness of 1 hour to 5 hours 59 minutes, initial encounter (principal); S32.402A Unspecified fracture of left acetabulum, initial encounter for closed fracture; J96.00 Acute respiratory failure, unspecified whether with hypoxia or hypercapnia; S32.039A Unspecified fracture of third lumbar vertebra, initial encounter for closed fracture; J90 Pleural effusion, not elsewhere classified; G93.1 Anoxic brain damage, not elsewhere classified; Z20.822 Contact with and (suspected) exposure to COVID-19; S00-T88 Injury, poisoning and certain other consequences of external causes; R40.2432 Glasgow coma scale score 3-8, at arrival to emergency department; E87.6 Hypokalemia; F19.10 Other psychoactive substance abuse, uncomplicated; F43.10 Post-traumatic stress disorder, unspecified; F20.9 Schizophrenia, unspecified; E83.39 Other disorders of phosphorus metabolism; Z78.1 Physical restraint status
CPT/HCPCS: 36415; 36416; 36600; 51702; 70450; 71045; 71260; 72125; 72170; 74018; 74177; 80048; 80053; 80306; 80307; 81003; 81015; 82805; 83605; 83735; 84100; 84146; 85025; 85610; 85730; 86850; 86900; 86901; 87811; 90714; 93970; 94002; 94003; 94640; 96374; 96375; 97139; C9113; G0390; J0360; J1630; J1650; J2250; J2270; J2704; J3010; J3490; J7030; J7050; J7620; Q9967; S0028; U0002; U0003; U0005